=== PATIENT | female | born 1990 | race American Indian/Alaskan Native ===

== ENCOUNTER 2017-07-30 02:02 | Emergency (ER) | payer SELFPAY ==
[2017-07-30 02:59] LABS: Basophils % (Auto) 0.4 % (0.0-1.8); Eosinophils # (Auto) 0.1 K/mm3 (0.0-0.4); Eosinophils % (Auto) 1.2 % (0.0-4.3); Hematocrit 41.1 % (30.3-42.9); Hemoglobin 13.9 gm/dl (10.1-14.3); Lymphocytes # (Auto) 1.9 K/mm3 (1.2-5.4); Mean Corpuscular HGB Conc 34 % (30-34); Mean Corpuscular Hemoglobin 29 pg (28-32); Mean Corpuscular Volume 85 fl (79-97); Monocytes # (Auto) 0.5 K/mm3 (0.0-0.8); Monocytes % (Auto) 6.3 % (0.0-7.3); Platelet Count 284 K/mm3 (140-440); Red Blood Count 4.85 M/mm3 (3.65-5.03); Red Cell Distribution Width 13.2 % (13.2-15.2)
[2017-07-30 03:12] LABS: Alanine Aminotransferase 16 units/L (7-56); Albumin 3.8 g/dL (3.9-5); BUN/Creatinine Ratio 14; Blood Urea Nitrogen 7 mg/dL (7-17); Calcium 9.1 mg/dL (8.4-10.2); Hemolysis Index 5
[2017-07-30 03:26] LABS: Bilirubin,Urine NEG (Negative); Blood,Urine NEG (Negative); Color,Urine Yellow (Yellow); Nitrite,Urine NEG (Negative); Protein,Urine <15 mg/dL mg/dL (Negative); Urobilinogen,Urine < 2.0 mg/dL (<2.0)
[2017-07-30 03:29] LABS: HCG Qualitative,Urine Negative (Negative)
[2017-07-30] MEDS ORDERED: TORADOL IV ONE (09:15)
[2017-07-30] MEDS ORDERED: NACL 0.9% 1000 ML 1,000 ML IV ONE (09:15)
[2017-07-30] MEDS ORDERED: TORADOL ONE (09:44)
[2017-07-30] MEDS ORDERED: NACL 0.9% 1000 ML 1,000 ML ONE (09:44)
--- NOTE | 2017-07-30 09:50 | Emergency Department Report ---
ED General Adult HPI - General Chief complaint: Extremity Injury, Lower Stated complaint: LEFT LEG PAIN Time Seen by Provider: 07/30/17 09:12 Source: patient Mode of arrival: Ambulatory Limitations: No Limitations - History of Present Illness Initial comments: Patient is a 27-year-old [place] female who is presenting with lower extremity discomfort bilaterally. Patient states both of her legs have been having a burning sensation mostly in the mornings upon waking. This is been present for the past 3 weeks. Patient did run out of her insulin approximately one month ago secondary to losing her insurance not be able to go back to his doctor. Patient is a type II diabetic. Patient blood sugar has been elevated as well. Patient denies any dizziness fevers chills nausea vomiting diarrhea chest pain or abdominal pain. Pain of her legs is rated 7 out of 10. Nothing makes the pain better and nothing Pain worse. - Related Data Previous Rx's Medication Instructions Recorded Last Taken Type Ketorolac [Toradol] 10 mg PO Q6H PRN #15 tablet 07/30/17 Unknown Rx metFORMIN [Glucophage] 500 mg PO BID #60 tablet 07/30/17 Unknown Rx Allergies Allergy/AdvReac Type Severity Reaction Status Date / Time No Known Allergies Allergy Unverified 07/30/17 02:19 ED Review of Systems ROS: Stated complaint: LEFT LEG PAIN Other details as noted in HPI Comment: All other systems reviewed and negative ED Past Medical Hx - Past Medical History Previous Medical History?: Yes Hx Diabetes: Yes - Surgical History Past Surgical History?: Yes Additional Surgical History: c section - Social History Smoking Status: Never Smoker Substance Use Type: None - Medications Home Medications: Home Medications Medication Instructions Recorded Confirmed Last Taken Type Ketorolac [Toradol] 10 mg PO Q6H PRN #15 tablet 07/30/17 Unknown Rx metFORMIN [Glucophage] 500 mg PO BID #60 tablet 07/30/17 Unknown Rx ED Physical Exam - General Limitations: No Limitations General appearance: alert, in no apparent distress - Head Head exam: Present: atraumatic, normocephalic - Eye Eye exam: Present: normal appearance - ENT ENT exam: Present: mucous membranes moist - Neck Neck exam: Present: normal inspection - Respiratory Respiratory exam: Present: normal lung sounds bilaterally. Absent: respiratory distress - Cardiovascular Cardiovascular Exam: Present: regular rate, normal rhythm. Absent: systolic murmur, diastolic murmur, rubs, gallop - GI/Abdominal GI/Abdominal exam: Present: soft, normal bowel sounds - Extremities Exam Extremities exam: Present: normal inspection, full ROM, normal capillary refill. Absent: tenderness, pedal edema, joint swelling, calf tenderness - Back Exam Back exam: Present: normal inspection - Neurological Exam Neurological exam: Present: alert, oriented X3 - Psychiatric Psychiatric exam: Present: normal affect, normal mood - Skin Skin exam: Present: warm, dry, intact, normal color. Absent: rash ED Course Vital Signs 07/30/17 02:16 Temperature 98.6 F Pulse Rate 86 Respiratory 17 Rate Blood Pressure 107/77 O2 Sat by Pulse 97 Oximetry ED Medical Decision Making - Lab Data Result diagrams: 07/30/17 02:20 07/30/17 02:20 - Medical Decision Making He is a 27-year-old Female who is presenting with diabetic neuropathy. Patient will be started on metformin secondary to being more affordable. Patient's glucose is 298. Patient is not in DKA. The patient also be given Toradol for her leg discomfort and will be discharged home. Patient given [facility] for follow-up. Before being discharged patient also disclosed to the nurse that she has a yeast infection. Patient given Diflucan Critical care attestation.: If time is entered above; I have spent that time in minutes in the direct care of this critically ill patient, excluding procedure time. ED Disposition Clinical Impression: Hyperglycemia, Neuropathy Disposition: DC-01 TO HOME OR SELFCARE Is pt being admited?: No Does the pt Need Aspirin: No Condition: Stable Instructions: Diabetic Hyperglycemia (ED), Diabetic Neuropathy (ED) Prescriptions: Ketorolac [Toradol] 10 mg PO Q6H PRN #15 tablet PRN Reason: Pain metFORMIN [Glucophage] 500 mg PO BID #60 tablet Referrals: MARCUS HUSSEIN MD [Staff Physician] - 3-5 Days
[2017-07-30] MEDS ORDERED: DIFLUCAN PO ONE (11:00)
[2017-07-30 11:52] VITALS: BP 110/64
== END 2017-07-30 11:35 | disposition home or self-care (01) ==
LOC: ED 02:02
DX: E11.40 Type 2 diabetes mellitus with diabetic neuropathy, unspecified (principal); E11.65 Type 2 diabetes mellitus with hyperglycemia; Z79.4 Long term (current) use of insulin
CPT/HCPCS: 36415; 80053; 81001; 81025; 82962; 85025; 96361; 96374; 99284; J1885; J7030

== ENCOUNTER 2017-09-24 14:39 | Emergency (ER) | payer MEDICAID, OTHER ==
[2017-09-24] MEDS ORDERED: CLEOCIN 900 MG/50 mL 900 MG/50 ML BAG IV ONE ×2 (15:14→18:09)
--- NOTE | 2017-09-24 15:20 | Emergency Department Report ---
Chief Complaint: Allergic Reaction Stated Complaint: NECK SWOLLEN/JOSE LUIS Time Seen by Provider: 09/24/17 15:08 - HPI History of Present Illness: 27 yo female presents after tooth extraction, oral surgery on Monday. She had 3 wisdom teeth extracted. She is taking amoxicillin. She now has neck swelling and difficulty swallowing especially when laying flat at night. No hives. No pruritis. No wheezing. - Exam Vital Signs: Vital Signs 09/24/17 14:46 Temperature 99.7 F H Pulse Rate 101 H Respiratory 18 Rate Blood Pressure 120/82 [Left] O2 Sat by Pulse 100 Oximetry MSE screening note: Focused history and physical exam performed. Due to findings the following was ordered: ED Disposition for MSE Condition: Stable
[2017-09-24 15:46] LABS: Basophils % (Auto) 0.3 % (0.0-1.8); Eosinophils # (Auto) 0.1 K/mm3 (0.0-0.4); Eosinophils % (Auto) 0.8 % (0.0-4.3); Hematocrit 38.5 % (30.3-42.9); Lymphocytes # (Auto) 0.9 K/mm3 (1.2-5.4); Lymphocytes % (Auto) 7.5 % (13.4-35.0); Mean Corpuscular HGB Conc 34 % (30-34); Mean Corpuscular Hemoglobin 28 pg (28-32); Mean Corpuscular Volume 84 fl (79-97); Monocytes # (Auto) 0.8 K/mm3 (0.0-0.8); Monocytes % (Auto) 6.1 % (0.0-7.3); Platelet Count 363 K/mm3 (140-440); Red Blood Count 4.59 M/mm3 (3.65-5.03); Red Cell Distribution Width 14.1 % (13.2-15.2)
[2017-09-24] MEDS ORDERED: MORPHINE IV ONE (15:54)
[2017-09-24] MEDS ORDERED: NACL 0.9% 1000 ML 1,000 ML IV ONE (15:54)
[2017-09-24] MEDS ORDERED: ZOFRAN IV ONE (15:54)
[2017-09-24 16:05] LABS: BUN/Creatinine Ratio 10; Blood Urea Nitrogen 7 mg/dL (7-17); Calcium 9.4 mg/dL (8.4-10.2); Hemolysis Index 7
--- NOTE | 2017-09-24 17:39 | Emergency Department Report ---
ED ENT HPI - General Chief complaint: Allergic Reaction Stated complaint: NECK SWOLLEN/JOSE LUIS Time Seen by Provider: 09/24/17 15:08 Source: patient Mode of arrival: Ambulatory Limitations: No Limitations - History of Present Illness Initial comments: Patient is a 27-year-old black female who is presenting with pain in her throat after oral surgery. Patient is status post 3 posterior molars removed from the right and one from the left Monday which was 4 days before her arrival today. Patient states that initially she felt fine however by yesterday she was having difficulty swallowing and lying flat because she felt as though her throat was closing. Patient denies any fever or itching. Patient does have some swelling to the right jaw as well as the submandibular space. Patient is able to swallow her own saliva. Patient while sitting upright does not feel short of breath. - Related Data Previous Rx's Medication Instructions Recorded Last Taken Type metFORMIN [Glucophage] 500 mg PO BID #60 tablet 07/30/17 Unknown Rx Clindamycin [Clindamycin CAP] 300 mg PO Q6H 7 Days capsule 09/24/17 Unknown Rx Ketorolac [Toradol] 10 mg PO Q6H PRN #15 tablet 09/24/17 Unknown Rx traMADol [Ultram] 50 mg PO Q6HR PRN #15 tablet 09/24/17 Unknown Rx Allergies Allergy/AdvReac Type Severity Reaction Status Date / Time No Known Allergies Allergy Unverified 07/30/17 02:19 ED Dental HPI - General Chief complaint: Allergic Reaction Stated complaint: NECK SWOLLEN/JOSE LUIS Time Seen by Provider: 09/24/17 15:08 Source: patient Mode of arrival: Ambulatory Limitations: No Limitations - Related Data Previous Rx's Medication Instructions Recorded Last Taken Type metFORMIN [Glucophage] 500 mg PO BID #60 tablet 07/30/17 Unknown Rx Clindamycin [Clindamycin CAP] 300 mg PO Q6H 7 Days capsule 09/24/17 Unknown Rx Ketorolac [Toradol] 10 mg PO Q6H PRN #15 tablet 09/24/17 Unknown Rx traMADol [Ultram] 50 mg PO Q6HR PRN #15 tablet 09/24/17 Unknown Rx Allergies Allergy/AdvReac Type Severity Reaction Status Date / Time No Known Allergies Allergy Unverified 07/30/17 02:19 ED Review of Systems ROS: Stated complaint: NECK SWOLLEN/JOSE LUIS Other details as noted in HPI Comment: All other systems reviewed and negative ED Past Medical Hx - Past Medical History Hx Diabetes: Yes - Surgical History Additional Surgical History: c section - Social History Smoking Status: Never Smoker Substance Use Type: None - Medications Home Medications: Home Medications Medication Instructions Recorded Confirmed Last Taken Type metFORMIN [Glucophage] 500 mg PO BID #60 tablet 07/30/17 Unknown Rx Clindamycin [Clindamycin CAP] 300 mg PO Q6H 7 Days capsule 09/24/17 Unknown Rx Ketorolac [Toradol] 10 mg PO Q6H PRN #15 tablet 09/24/17 Unknown Rx traMADol [Ultram] 50 mg PO Q6HR PRN #15 tablet 09/24/17 Unknown Rx ED Physical Exam - General Limitations: No Limitations General appearance: alert, in no apparent distress - Head Head exam: Present: atraumatic, normocephalic - Eye Eye exam: Present: normal appearance - ENT ENT exam: Present: mucous membranes moist, other (patient is unable to open her mouth very wide. Patient states she has significant pain. Patient does have some tenderness and swelling to the right submandibular space. Patient is able to lift the time and did not see any significant swelling in the sublingual space.) - Neck Neck exam: Present: normal inspection - Respiratory Respiratory exam: Present: normal lung sounds bilaterally. Absent: respiratory distress, wheezes, rales, rhonchi - Cardiovascular Cardiovascular Exam: Present: regular rate, normal rhythm. Absent: systolic murmur, diastolic murmur, rubs, gallop - GI/Abdominal GI/Abdominal exam: Present: soft, normal bowel sounds. Absent: distended, tenderness, guarding - Extremities Exam Extremities exam: Present: normal inspection - Back Exam Back exam: Present: normal inspection - Neurological Exam Neurological exam: Present: alert, oriented X3 - Psychiatric Psychiatric exam: Present: normal affect, normal mood - Skin Skin exam: Present: warm, dry, intact, normal color. Absent: rash ED Course Vital Signs 09/24/17 09/24/17 09/24/17 14:46 15:46 16:00 Temperature 99.7 F H Pulse Rate 101 H Respiratory 18 Rate Blood Pressure Blood Pressure 120/82 [Left] O2 Sat by Pulse 100 100 100 Oximetry 09/24/17 09/24/17 09/24/17 16:30 17:10 17:30 Temperature Pulse Rate 91 H 80 71 Respiratory 19 17 17 Rate Blood Pressure 122/76 122/76 117/67 Blood Pressure [Left] O2 Sat by Pulse 99 99 100 Oximetry ED Medical Decision Making - Lab Data Result diagrams: 09/24/17 15:26 09/24/17 15:26 - Radiology Data Radiology results: report reviewed Site 2 x 1.5 cm periodontal abscess just below the third molar space on the right - Medical Decision Making Patient is still able to speak there is no respiratory distress. CT is does not show that her airway has been compromised. There is no sublingual abscess. Patient will be switched to clindamycin and she will have follow-up with her dentist tomorrow Critical care attestation.: If time is entered above; I have spent that time in minutes in the direct care of this critically ill patient, excluding procedure time. ED Disposition Clinical Impression: Acute periodontal abscess Disposition: DC-01 TO HOME OR SELFCARE Is pt being admited?: No Does the pt Need Aspirin: No Condition: Stable Instructions: Dental Abscess (ED) Prescriptions: Clindamycin [Clindamycin CAP] 300 mg PO Q6H 7 Days capsule Ketorolac [Toradol] 10 mg PO Q6H PRN #15 tablet PRN Reason: Pain traMADol [Ultram] 50 mg PO Q6HR PRN #15 tablet PRN Reason: Pain Referrals: PRIMARY CARE, [Primary Care Provider] - 3-5 Days
--- NOTE | 2017-09-24 17:55 | Cat Scan Report ---
FINAL REPORT EXAM: CT NECK W CON HISTORY: dental infection TECHNIQUE: CT neck with IV contrast PRIORS: None. FINDINGS: And there is bony defect posterior maxilla on the right at the expected location of the 3rd molar likely reflecting and extracted tooth. There is some fracture of the medial bone and bone defect present along with small pockets of air. Extending medially and inferior to this there is low-density collection containing few air bubbles present. Borders are not well-defined however collection measures approximately 2.4 x 1.6 centimeters and there is some mass effect on the oropharynx which is deviated toward the left No evidence of for pharyngeal tonsillar enlargement no evidence of enlargement of the adenoids. No pathologically enlarged lymph nodes are identified in the neck The major salivary glands are within normal limits No abnormal mass or cyst is seen. The cervical spine is within normal limits. No evidence of significant anterior osteophyte. Proximal esophagus does not appear dilated. No focal inflammatory change seen. Major vascular structures are unremarkable. Thyroid is not enlarged. IMPRESSION: Findings are most consistent with a periodontal abscess at the floor of the mouth on the right were there is absent 3rd molar and bony fragmentation present along with small pockets of air
[2017-09-24] MEDS ORDERED: TORADOL IV ONE (18:09)
[2017-09-24 19:14] VITALS: BP 119/83
== END 2017-09-24 19:13 | disposition home or self-care (01) ==
LOC: ED 14:39
DX: K05.219 Aggressive periodontitis, localized, unspecified severity (principal); E11.9 Type 2 diabetes mellitus without complications
CPT/HCPCS: 36415; 70491; 80048; 85025; 87040; 96365; 96375; 99284; J1885; J2270; J2405; J2930; J7030; Q9967